=== PATIENT | female | born 1955 | race Hispanic/Latino ===

== ENCOUNTER 2017-10-14 17:03 | Inpatient (IN) | payer MEDICARE ==
[~2017-10-14] VITALS: Ht 154.9 cm; Wt 72.4 kg
[2017-10-14 18:08] LABS: BASOPHILS % (AUTO) 0.7 % (0.0-5.0); EOSINOPHILS % (AUTO) 5.1 % (0.0-8.0); HEMATOCRIT 38.6 % (36-48); LYMPHOCYTES % (AUTO) 40.6 % (21.0-51.0); MEAN CORPUSCULAR HGB CONC 34.8 g/dL (32.0-36.0); MEAN CORPUSCULAR VOLUME 94.6 fL (79-99); MONOCYTES % (AUTO) 6.6 % (3.0-13.0); NUCLEATED RED BLOOD CELLS 0.1 % (0.0-0.19); PLATELET COUNT (AUTO) 249 K/uL (130-400); RED BLOOD CELL COUNT(AUTO) 4.08 MIL/uL (4.00-5.50); RED CELL DISTRIBUTION WIDTH 13.3 % (11.0-15.5); WHITE BLOOD COUNT (AUTO) 6.4 K/uL (4.8-10.8)
[2017-10-14] MEDS ORDERED: NITROGLYCERIN 1GM/1 INCH PACKET TD ONE (18:16)
[2017-10-14] MEDS ORDERED: ASPIRIN 81MG TAB.CHEW ONE (18:16)
[2017-10-14 18:23] LABS: CREATININE 0.8 mg/dL (0.5-1.5); POTASSIUM 3.9 mmol/L (3.5-5.1)
[2017-10-14 18:38] LABS: ALBUMIN 3.3 g/dL (3.5-5.0); BILIRUBIN,TOTAL 0.2 mg/dL (0.2-1.0); CREATINE KINASE MB 1.2 ng/mL (0.5-3.6); TOTAL PROTEIN, SERUM 6.5 g/dL (6.0-8.3)
[2017-10-14 18:41] LABS: INR 0.89 (0.85-1.15); PARTIAL THROMBOPLASTIN TIME 25.1 SEC (26.3-35.5); PROTHROMBIN TIME 9.4 SEC (9.6-11.6)
[2017-10-14] MEDS ORDERED: ACETAMINOPHEN 325 MG TAB ONE (19:18)
[2017-10-14 22:09] VITALS: BP 130/75
[2017-10-14] MEDS ORDERED: ALBU8.5H8 IH (23:01)
[2017-10-14] MEDS ORDERED: FURO20TA4 PO (23:01)
[2017-10-14] MEDS ORDERED: NITR0.4T SL (23:01)
[2017-10-14] MEDS ORDERED: FLUT100P6 MC (23:01)
[2017-10-14] MEDS ORDERED: CETI10TA57 PO (23:01)
[2017-10-14] MEDS ORDERED: POTA10TA14 PO (23:01)
[2017-10-14] MEDS ORDERED: AEC81 PO (23:01)
[2017-10-14] MEDS ORDERED: ROSU40TA20 PO (23:01)
[2017-10-14] MEDS ORDERED: FISH1CAP49 PO (23:01)
[2017-10-14] MEDS ORDERED: CHOL200074 PO (23:01)
[2017-10-14] MEDS ORDERED: LACT10SO PO (23:01)
[2017-10-14] MEDS ORDERED: GABA-529 PO (23:01)
[2017-10-14] MEDS ORDERED: BRIM5DRO OP (23:01)
[2017-10-14] MEDS ORDERED: TELM40TA5 PO (23:01)
[2017-10-14] MEDS ORDERED: ISOS30TA6 PO (23:01)
[2017-10-14] MEDS ORDERED: POTASSIUM CHLORIDE 20 MEQ ERTAB PO PRN (23:45)
[2017-10-14] MEDS ORDERED: LIDOCAINE HCL-MPF 1% 2ML VIAL IJ PRN (23:45)
[2017-10-14] MEDS ORDERED: POTASSIUM CHLORIDE 20MEQ/100ML 100 ML IV PRN (23:45)
[2017-10-14] MEDS ORDERED: ZOLPIDEM TARTRATE 5 MG TAB PO PRN (23:45)
[2017-10-14] MEDS ORDERED: GUAIFENESIN-DM 200/20 MG 10 ML PO PRN (23:45)
[2017-10-14] MEDS ORDERED: DEXTROSE 50%-WATER 50 ML DISP.SYRIN IV PRN (23:45)
[2017-10-14] MEDS ORDERED: LACTULOSE 20 GM/30 ML UDCUP PO PRN (23:45)
[2017-10-14] MEDS ORDERED: GLUCAGON 1MG KIT 1 MG ML IM PRN (23:45)
[2017-10-14] MEDS ORDERED: POTASSIUM CHLORIDE 10% ELIXIR 20 MEQ/15 ML UDCUP PO PRN (23:45)
[2017-10-14] MEDS ORDERED: ACETAMINOPHEN 325 MG TAB PO PRN (23:45)
[2017-10-14 23:46] VITALS: BP 104/69
[2017-10-15 03:56] VITALS: BP 99/60
[2017-10-15 04:49] LABS: MEAN CORPUSCULAR HEMOGLOBIN 32.6 pg (27.0-33.0); MEAN CORPUSCULAR HGB CONC 35.1 g/dL (32.0-36.0); PLATELET COUNT (AUTO) 225 K/uL (130-400); RED BLOOD CELL COUNT(AUTO) 3.87 MIL/uL (4.00-5.50); RED CELL DISTRIBUTION WIDTH 13.2 % (11.0-15.5); WHITE BLOOD COUNT (AUTO) 6.8 K/uL (4.8-10.8)
[2017-10-15 05:01] LABS: EOSINOPHILS % (MANUAL) 4 % (1-6); LYMPHOCYTES % (MANUAL) 62 % (22-44); MONOCYTES % (MANUAL) 3 % (2-9); REACTIVE LYMPHOCYTES 1 % (0-0); SEGMENTED NEUTROPHILS % 30 % (40-70)
[2017-10-15 05:02] LABS: MAN.DIFF COMMENT-IMPRESSION MANUAL DIFFERENTIAL
[2017-10-15 05:04] LABS: ALANINE AMINOTRANSFERASE 18 U/L (12-78); ALBUMIN 3.1 g/dL (3.5-5.0); ASPARTATE AMINOTRANSFERASE 13 U/L (10-37); BILIRUBIN,TOTAL 0.3 mg/dL (0.2-1.0); CARBON DIOXIDE 27 mmol/L (21-32); CHLORIDE 109 mmol/L (101-111); CHOLESTEROL 199 mg/dL (<200); CREATINE KINASE MB 1.1 ng/mL (0.5-3.6); CREATINE KINASE, TOTAL 62 U/L (21-232); CREATININE 0.9 mg/dL (0.5-1.5); GLOMERULAR FILTR. RATE CALC 67 mL/min (>60); GLUCOSE,RANDOM 94 mg/dL (70-105); HDL CHOLESTEROL 56 mg/dL (35-85); LDL DIRECT 146 mg/dL (0-99); MYOGLOBIN 50 ng/mL (10-92); POTASSIUM 4.1 mmol/L (3.5-5.1); SODIUM SERUM 143 mmol/L (136-145); TRIGLYCERIDES 122 mg/dL (30-200); TROPONIN I < 0.04 ng/mL (0.00-0.06); UREA NITROGEN, BLOOD 17 mg/dL (7-18)
[2017-10-15 05:05] LABS: B-TYPE NATRIURETIC PEPTIDE 50 pg/mL (0-100)
[2017-10-15] MEDS: INSULIN R PO SS1 SQ SCH ×4 (06:08→21:00)
[2017-10-15 07:30] VITALS: BP 120/67
[2017-10-15] MEDS: FAMOTIDINE 20MG TAB 20 MG TAB PO SCH ×2 (08:15→21:04)
[2017-10-15] MEDS: ASPIRIN 325 MG TABLET PO SCH (08:15)
[2017-10-15] MEDS: METOPROLOL TARTRATE 25 MG TAB PO SCH ×2 (08:15→21:06)
[2017-10-15 11:40] VITALS: BP 115/75
[2017-10-15] MEDS ORDERED: REGADENOSON 0.4 MG/5 ML PF SYG IVP SCH (14:45)
[2017-10-15] MEDS: ACETAMINOPHEN 325 MG TAB PO PRN (15:35)
[2017-10-15] MEDS: POTASSIUM CHLORIDE 10 MEQ/TAB.SA PO SCH (17:25)
[2017-10-15] MEDS: FUROSEMIDE 20 MG TABLET PO SCH (17:26)
[2017-10-15 17:37] VITALS: BP 112/72
[2017-10-15 19:50] VITALS: BP 122/70
[2017-10-15] MEDS ORDERED: ATORVASTATIN CALCIUM 40 MG TABLET PO SCH (21:00)
[2017-10-15] MEDS ORDERED: FUROSEMIDE 20 MG TABLET PO SCH (21:00)
[2017-10-15] MEDS ORDERED: GABAPENTIN 100 MG CAPSULE PO SCH (21:00)
[2017-10-15] MEDS: ***HM***(Brimonidine Tartrate/Timolol (Combigan Eye Drops) 5 ML) OP SCH (21:06)
[2017-10-16] VITALS (11 sets, daily range): BP systolic 82–106; BP diastolic 53–71
[2017-10-16 04:34] LABS: HEMATOCRIT 39.2 % (36-48); MEAN CORPUSCULAR HEMOGLOBIN 32.1 pg (27.0-33.0); MEAN CORPUSCULAR HGB CONC 34.4 g/dL (32.0-36.0); MEAN CORPUSCULAR VOLUME 93.3 fL (79-99); PLATELET COUNT (AUTO) 240 K/uL (130-400)
[2017-10-16 04:45] LABS: MAGNESIUM 1.8 mg/dL (1.80-2.40); POTASSIUM 4.3 mmol/L (3.5-5.1)
[2017-10-16 05:07] LABS: INR 0.88 (0.85-1.15); PARTIAL THROMBOPLASTIN TIME 24.9 SEC (26.3-35.5); PROTHROMBIN TIME 9.3 SEC (9.6-11.6)
[2017-10-16] MEDS: INSULIN R PO SS1 SQ SCH ×2 (06:21→11:30)
[2017-10-16] MEDS ORDERED: NITROGLYCERIN 5 MG/ML 10 ML VIAL IV ONE (07:15)
[2017-10-16] MEDS ORDERED: ISOVUE-370 50ML VIAL IV ONE (07:15)
[2017-10-16] MEDS ORDERED: IOPAMIDOL-370 100 ML VIAL IV ONE (07:15)
[2017-10-16] MEDS ORDERED: LIDOCAINE HCL 2% 20ML ONE (07:15)
[2017-10-16] MEDS ORDERED: MIDAZOLAM HCL 1 MG/ML 2ML VIAL ONE (07:39)
[2017-10-16] MEDS ORDERED: FENTANYL CITRATE PF 50 MCG/1 ML 2ML VIAL ONE (07:39)
[2017-10-16] MEDS ORDERED: BIVALIRUDIN 250 MG/VIAL IV ONE (07:43)
[2017-10-16] MEDS ORDERED: SODIUM CHLORIDE 0.9% 1000ML 1,000 ML IV SCH (08:16)
[2017-10-16] MEDS ORDERED: HYDRALAZINE HCL 20 MG/ML VIAL IV PRN (08:30)
[2017-10-16] MEDS: FAMOTIDINE 20MG TAB 20 MG TAB PO SCH (09:00)
[2017-10-16] MEDS ORDERED: ISOSORBIDE MONO 30MG TAB SR PO SCH (09:00)
[2017-10-16] MEDS ORDERED: LOSARTAN 50 MG TABLET PO SCH (09:00)
[2017-10-16] MEDS ORDERED: LACTULOSE 20 GM/30 ML UDCUP PO SCH (09:00)
[2017-10-16] MEDS ORDERED: CETIRIZINE HCL 5 MG TABLET PO SCH (09:00)
[2017-10-16] MEDS: METOPROLOL TARTRATE 25 MG TAB PO SCH (09:00)
[2017-10-16] MEDS ORDERED: TELMISARTAN 40 MG TAB PO SCH (09:00)
[2017-10-16] MEDS ORDERED: FISH OIL 1000 MG/CAP PO SCH (09:00)
[2017-10-16] MEDS ORDERED: CHOLECALCIFEROL 1000 UNIT PO SCH (09:00)
[2017-10-16] MEDS: FUROSEMIDE 20 MG TABLET PO SCH (10:02)
[2017-10-16] MEDS: ASPIRIN 325 MG TABLET PO SCH (10:05)
[2017-10-16] MEDS: POTASSIUM CHLORIDE 10 MEQ/TAB.SA PO SCH (10:05)
[2017-10-16] MEDS: ***HM***(Brimonidine Tartrate/Timolol (Combigan Eye Drops) 5 ML) OP SCH (10:12)
[2017-10-16] MEDS: ACETAMINOPHEN 325 MG TAB PO PRN (14:49)
== END 2017-10-16 14:55 | disposition home or self-care (01) | DRG 287 ==
LOC: EDH 17:03 → OBSVTOIN 20:30 → EDHIP 20:30 → 2AH 21:57
PROVIDERS: ADMIT Family Medicine; ATTEND Family Medicine
PROC: 4A023N7 Measurement of Cardiac Sampling and Pressure, Left Heart, Percutaneous Approach (ICD-10-PCS; principal; 2017-10-16)
PROC: B2111ZZ Fluoroscopy of Multiple Coronary Arteries using Low Osmolar Contrast (ICD-10-PCS; 2017-10-16)
PROC: B2151ZZ Fluoroscopy of Left Heart using Low Osmolar Contrast (ICD-10-PCS; 2017-10-16)
DX: R07.9 Chest pain, unspecified (principal); E11.9 Type 2 diabetes mellitus without complications; E78.5 Hyperlipidemia, unspecified; F17.200 Nicotine dependence, unspecified, uncomplicated; I25.10 Atherosclerotic heart disease of native coronary artery without angina pectoris; I10 Essential (primary) hypertension; I34.0 Nonrheumatic mitral (valve) insufficiency; J45.909 Unspecified asthma, uncomplicated; I25.2 Old myocardial infarction; Z90.710 Acquired absence of both cervix and uterus
CPT/HCPCS: 36415; 71046; 78452; 80048; 80053; 80061; 82550; 82553; 82948; 83735; 83874; 83880; 84484; 85025; 85027; 85610; 85730; 93005; 93017; 93458; 96374; 99152; 99153; A9500; C1894; J0583; J1644; J2250; J2785; J3010; J3490; J7030; Q9967

== ENCOUNTER → 2019-09-25 | Outpatient (CLI) | payer MEDICARE ==
[~2019-09-25] MED LIST: AEC81 PO; ALBU8.5H8 IH; BRIM5DRO OP; CETI10TA57 PO; CHOL200074 PO; FISH1CAP49 PO; FURO20TA4 PO; GABA-529 PO; ISOS30TA6 PO; LACT10SO PO; NITR0.4T SL; POTA10TA14 PO; ROSU40TA21 PO; TELM40TA8 PO; [UNRECOGNIZED DRUG - CODE] MC
== END | disposition home or self-care (01) ==
LOC: SHCH 09:51
PROVIDERS: ATTEND Internal Medicine Cardiovascular Disease
DX: I87.2 Venous insufficiency (chronic) (peripheral) (principal)
CPT/HCPCS: 93970

== ENCOUNTER 2020-11-06 16:49 | Emergency (ER) | payer MEDICARE ==
[~2020-11-06 16:49] MED LIST changes: +FLUT100P MC; -ISOS30TA6 PO; +ISOS30TA92 PO; -LACT10SO PO; +LACT10SO5 PO; -[UNRECOGNIZED DRUG - CODE] MC
[2020-11-06] MEDS ORDERED: HYDROCODONE/ACETAMINOPHEN 10/325 MG TAB ONE (17:28)
== END 2020-11-06 18:36 | disposition home or self-care (01) ==
LOC: EDH 16:49
DX: S83.421A Sprain of lateral collateral ligament of right knee, initial encounter (principal); J45.909 Unspecified asthma, uncomplicated; E11.9 Type 2 diabetes mellitus without complications; E78.5 Hyperlipidemia, unspecified; I10 Essential (primary) hypertension; Z90.49 Acquired absence of other specified parts of digestive tract; Z90.710 Acquired absence of both cervix and uterus; Z87.891 Personal history of nicotine dependence; Z88.0 Allergy status to penicillin; X58.XXXA Exposure to other specified factors, initial encounter; Y93.89 Activity, other specified; Y92.89 Other specified places as the place of occurrence of the external cause; Y99.8 Other external cause status
CPT/HCPCS: 73562

== ENCOUNTER → 2020-12-15 | Outpatient (CLI) | payer MEDICARE | END | disposition home or self-care (01) | LOC: SHCH 09:36 | PROVIDERS: ATTEND Internal Medicine Cardiovascular Disease | DX: I87.2 Venous insufficiency (chronic) (peripheral) (principal) | CPT/HCPCS: 93970 ==

== ENCOUNTER 2022-11-24 13:48 | Observation (INO) | payer MEDICARE, MEDICAID ==
[~2022-11-24] VITALS: Ht 157.5 cm; Wt 73.7 kg
[2022-11-24 14:21] LABS: BASOPHILS % (AUTO) 0.6 % (0.0-5.0); EOSINOPHILS % (AUTO) 3.3 % (0.0-8.0); MEAN CORPUSCULAR HEMOGLOBIN 31.8 pg (27.0-33.0); MEAN CORPUSCULAR HGB CONC 33.4 g/dL (32.0-36.0); MEAN CORPUSCULAR VOLUME 95.2 fL (79-99); MONOCYTES % (AUTO) 5.5 % (3.0-13.0); PLATELET COUNT (AUTO) 224 K/uL (130-400); RED BLOOD CELL COUNT(AUTO) 3.99 MIL/uL (4.00-5.50); RED CELL DISTRIBUTION WIDTH 13.4 % (11.0-15.5); WHITE BLOOD COUNT (AUTO) 6.7 K/uL (4.8-10.8)
[2022-11-24] MEDS ORDERED: 0.9%NACL 100ML 100 ML IV SCH (14:30)
[2022-11-24] MEDS ORDERED: NITROGLYCERIN 1GM OINT 1 INCH/1GM TD ONE (14:30)
[2022-11-24 14:36] LABS: CREATININE 0.8 mg/dL (0.5-1.5); POTASSIUM 4.4 mmol/L (3.5-5.1)
[2022-11-24 14:41] LABS: ALBUMIN 3.8 g/dL (3.5-5.0); TOTAL PROTEIN, SERUM 6.6 g/dL (6.0-8.3)
[2022-11-24 14:51] LABS: APPEARANCE,URINE CLEAR (CLEAR); BILIRUBIN,URINE NEGATIVE (NEGATIVE); COLOR,URINE COLORLESS (YELLOW); GLUCOSE, URINE (UA) NEGATIVE (NEGATIVE); KETONES,URINE NEGATIVE (NEGATIVE); LEUKOCYTE ESTERASE ,URINE NEGATIVE Leu/uL (NEGATIVE); NITRATE,URINE NEGATIVE (NEGATIVE); OCCULT BLOOD,URINE SMALL (NEGATIVE); PROTEIN,URINE NEGATIVE (NEGATIVE); UROBILINOGEN,URINE 0.2 mg/dL (0.2-1.0)
[2022-11-24 15:07] LABS: BACTERIA,URINE RARE /HPF (None Seen); RBC,URINE 0-1 /HPF (0-1); SQUAMOUS EPITHELIAL CELL,UR RARE /HPF (0-2); WBC,URINE 0-1 /HPF (0-1)
[2022-11-24] MEDS ORDERED: LACTULOSE 20 GM/30 ML UDCUP PO PRN (16:00)
[2022-11-24] MEDS ORDERED: MAGNESIUM 2GM PREMIX 50ML 50 ML IV PRN (16:00)
[2022-11-24] MEDS ORDERED: ACETAMINOPHEN 325 MG TAB PO PRN ×2 (16:00)
[2022-11-24] MEDS ORDERED: POTASSIUM CHLORIDE 20MEQ/100ML 100 ML IV PRN (16:00)
[2022-11-24] MEDS ORDERED: POTASSIUM CHLORIDE 10% ELIXIR 20 MEQ/15 ML UDCUP PO PRN (16:00)
[2022-11-24] MEDS ORDERED: KCL 20 MEQ ERTAB PO PRN (16:00)
[2022-11-24] MEDS ORDERED: ONDANSETRON 4MG INJ IV PRN (16:00)
[2022-11-24 16:04] LABS: INR 0.93 (0.85-1.15)
[2022-11-24] MEDS ORDERED: ICOS1CAP PO (16:46)
[2022-11-24] MEDS ORDERED: PANT40TA54 PO (16:46)
[2022-11-24] MEDS ORDERED: LEFL10TA19 PO (16:46)
[2022-11-24] MEDS ORDERED: ENOXAPARIN SODIUM 80 MG/0.8 ML SQ SCH (17:30)
[2022-11-24 22:30] VITALS: BP 135/77
[2022-11-25 04:00] VITALS: BP 110/66
[2022-11-25 04:32] LABS: HEMATOCRIT 37.8 % (36-48); MEAN CORPUSCULAR HEMOGLOBIN 31.1 pg (27.0-33.0); MEAN CORPUSCULAR HGB CONC 32.5 g/dL (32.0-36.0); MEAN CORPUSCULAR VOLUME 95.5 fL (79-99); RED BLOOD CELL COUNT(AUTO) 3.96 MIL/uL (4.00-5.50); RED CELL DISTRIBUTION WIDTH 13.4 % (11.0-15.5); WHITE BLOOD COUNT (AUTO) 6.2 K/uL (4.8-10.8)
[2022-11-25 04:45] LABS: CREATININE 0.8 mg/dL (0.5-1.5); MAGNESIUM 1.8 mg/dL (1.80-2.40); POTASSIUM 4.4 mmol/L (3.5-5.1)
[2022-11-25 07:59] VITALS: BP 137/88
[2022-11-25] MEDS ORDERED: LOSARTAN 50 MG TABLET PO SCH (09:00)
[2022-11-25] MEDS ORDERED: ENOXAPARIN SODIUM 40 MG/0.4 ML SYRINGE SQ SCH (09:00)
[2022-11-25] MEDS ORDERED: PANTOPRAZOLE 40 MG/VIAL IVP SCH (09:00)
[2022-11-25] MEDS ORDERED: ASPIRIN 81 MG EC TAB PO SCH (09:00)
[2022-11-25] MEDS ORDERED: ISOSORBIDE MONO 30MG SR TAB PO SCH (09:00)
[2022-11-25 11:20] VITALS: BP 137/78
== END 2022-11-25 12:15 | disposition home or self-care (01) ==
LOC: EDH 13:48 → INTOOBSV 15:37 → EDHIP 15:37 → 4DH 22:30
PROVIDERS: ADMIT Hospitalist; ATTEND Hospitalist
DX: I25.110 Atherosclerotic heart disease of native coronary artery with unstable angina pectoris (principal); I10 Essential (primary) hypertension; J45.909 Unspecified asthma, uncomplicated; E78.5 Hyperlipidemia, unspecified; E11.9 Type 2 diabetes mellitus without complications; I25.2 Old myocardial infarction; G47.00 Insomnia, unspecified; K59.00 Constipation, unspecified; Z86.73 Personal history of transient ischemic attack (TIA), and cerebral infarction without residual deficits; Z90.710 Acquired absence of both cervix and uterus; Z79.82 Long term (current) use of aspirin; Z79.899 Other long term (current) drug therapy
CPT/HCPCS: 96372; 99285; 84484 ×2; 80053; 83880; 85025; 85378; 85610; 85730; 81001; 36415 ×2; 71045; 93970; 93005; 96365; 96366; 96375; 83735; 80061; 80048; 85027; J1650; G0378 ×2; J3475; C9113

== ENCOUNTER → 2023-01-31 | Outpatient (CLI) | payer MEDICARE ==
[~2023-01-31] MED LIST changes: -CETI10TA57 PO; -FURO20TA4 PO; +ICOS1CAP PO; -LACT10SO5 PO; +LEFL10TA19 PO; +PANT40TA54 PO
== END | disposition home or self-care (01) ==
LOC: SHCH 12:46
PROVIDERS: ATTEND Internal Medicine Cardiovascular Disease
DX: I87.2 Venous insufficiency (chronic) (peripheral) (principal); I87.1 Compression of vein
CPT/HCPCS: 93970

== ENCOUNTER → 2023-02-03 | Outpatient (CLI) | payer MEDICARE ==
[~2023-02-03] MED LIST changes: +REGADENOSON 0.4 MG/5 ML PF SYG IVP ONE
== END | disposition home or self-care (01) ==
LOC: SHCH 07:35
PROVIDERS: ATTEND Internal Medicine Cardiovascular Disease
DX: I20.9 Angina pectoris, unspecified (principal); R07.9 Chest pain, unspecified
CPT/HCPCS: 78452; 96374; 93017; J2785; A9500 ×2

== ENCOUNTER → 2024-07-10 | Outpatient (CLI) | payer MEDICARE ==
[~2024-07-10] MED LIST changes: -REGADENOSON 0.4 MG/5 ML PF SYG IVP ONE; -ROSU40TA21 PO; +ROSU40TA88 PO
== END | disposition home or self-care (01) ==
LOC: SHCH 08:35
PROVIDERS: ATTEND Internal Medicine Cardiovascular Disease
DX: I73.9 Peripheral vascular disease, unspecified (principal); I87.2 Venous insufficiency (chronic) (peripheral)
CPT/HCPCS: 93925; 93970